=== PATIENT | female | born 2005 | race Caucasian/White ===

== ENCOUNTER 2024-03-13 08:28 | Emergency (ER) | payer BC ==
[2024-03-13] MEDS: Sodium Chloride 0.9% 1,000 ML IV STA (09:41)
[2024-03-13] MEDS: Ketorolac 30 MG/ML SDV IVPUSH ONE (09:41)
[2024-03-13] MEDS: Sodium Chloride 0.9% 10 ML Syringe FLUSH PRN (09:41)
[2024-03-13] MEDS: Ondansetron 4 MG/2 ML SDV IVPUSH ONE (09:42)
[2024-03-13 09:49] LABS: BASOPHILS ABSOLUTE AUTO 0.1 K/mm3 (0.0-0.2); BASOPHILS PERCENT AUTO 0.4 % (0.0-1.0); EOSINOPHILS ABSOLUTE AUTO 0.1 K/mm3 (0.0-0.4); EOSINOPHILS PERCENT AUTO 0.9 % (0.0-6.0); HEMATOCRIT 38.2 % (37.0-47.0); HEMOGLOBIN 13.3 gm/dl (12.0-16.0); IMMATURE GRAN ABSOLUTE AUTO 0.05 K/mm3 (0.00-0.05); IMMATURE GRAN PERCENT AUTO 0.4 % (0.0-0.4); LYMPHOCYTES ABSOLUTE AUTO 1.4 K/mm3 (1.0-4.8); LYMPHOCYTES PERCENT AUTO 12.4 % (24.0-44.0); MEAN CORPUSCULAR HEMOGLOBIN 31.7 pg (28.0-32.0); MEAN CORPUSCULAR HGB CONC 34.8 g/dl (32.0-36.0); MONOCYTES ABSOLUTE AUTO 0.6 K/mm3 (0.0-0.8); MONOCYTES PERCENT AUTO 5.6 % (0.0-8.0); NEUTROPHILS PERCENT AUTO 80.3 % (41.0-71.0); PLATELET COUNT,PLT 329 K/mm3 (150-400); WHITE BLOOD CELL COUNT,WBC 11.25 K/mm3 (3.9-11.3)
[2024-03-13 10:10] LABS: A/G RATIO 1.3 (1-2); ALBUMIN 3.9 g/dl (3.4-5.0); BILIRUBIN TOTAL 0.5 mg/dL (0.2-1.0); CALCIUM 8.6 mg/dL (8.5-10.1); CREATININE 0.8 mg/dL (0.55-1.02); EST CRCL DRUG DOSING (CG) 99.04 mL/min
== END 2024-03-13 11:31 | disposition home or self-care (01) ==
LOC: JD.ED 08:28
DX: N94.6 Dysmenorrhea, unspecified (principal)
CPT/HCPCS: 36415; 80053; 84703; 85025; 96361; 96374; 99283; 99284-25; J1885; J7030